=== PATIENT | male | born 1990 | race African-American/Black ===

== ENCOUNTER 2018-04-16 11:54 | Emergency (ER) | payer OTHER ==
[~2018-04-16] VITALS: Ht 185.4 cm; Wt 81.7 kg
--- NOTE | ~2018-04-16 | HC ---
[facility] [place] [address] CONSULTATION Name: QUETA KAUR Room #: DEP [id number] Admission: 04/16/18 Attend Phys: Discharge: 04/16/18 Date of : 89 Report #: [id number] THIS REPORT FOR: //name// CC: [facility] physician/PCP Shelbi Gould DATE OF SERVICE: 04/16/2018 REASON FOR CONSULTATION: Possible sore throat, questionable peritonsillar abscess. HISTORY OF PRESENT ILLNESS: I was asked to come see the patient by Dr. Gould for concerns regarding possible peritonsillar abscess. The patient was evaluated in the Emergency Room. He was alert and oriented and found in the hospital bed watching TV. He states about 5 days ago he started noticing a sore throat that he thought was caused by a smoker's cough. However, over the last 5-6 days his pain has increased. He has denied any other symptoms associated with this like abdominal pain, headaches, fever, ear pain, or runny nose. He denies any known exposure. He was seen in urgent care, had a fever of 99.5. He had a negative strep test. PAST MEDICAL HISTORY: Notable for previous peritonsillar abscess on the left side, which was I and D'd last year. He has not taken any medications for his symptoms today. His past medical history and surgical history is unremarkable aside from what is mentioned above. SOCIAL HISTORY: Notable for the use of tobacco products. REVIEW OF SYSTEMS: Negative for any other GI, , cardiovascular or respiratory symptoms. PHYSICAL EXAMINATION: VITAL SIGNS: Pulse ox 99, temperature is 37.5. GENERAL: He was alert and oriented. He did not have a hot potato voice, had a normal voice. He had no evidence of any acute distress. HEENT: Examination of the ears is unremarkable. Nares are normal. Oral cavity shows no significant trismus. Oral cavity mucosa is moist. Oropharynx reveals some edema of the right side of the soft palate with some medialization of the right tonsil compared to left. Both tonsils appear to be 2-3+ in nature, modestly cryptic. Scant exudates noted on both tonsils and fairly quickly spread. Pharyngeal wall appears unremarkable. Mild jugulodigastric adenopathy is noted bilaterally, slightly worse on the right. NECK: Otherwise supple. LABORATORY DATA: WBCs, normal white blood cell count without left shift. Strep test as noted above. Rapid strep is negative. [address] [address] CONSULTATION Name: QUETA KAUR Room #: DEP Max#: [id number] Admission: 04/16/18 Attend Phys: Discharge: 04/16/18 Date of : 89 Report #: [id number] scan was reviewed by myself. There are some changes in the attenuation in the superior portion of the oropharyngeal soft tissues. This is somewhat hazy in appearance without obvious rim enhancing and is more appreciated on the axial views, less so on the coronal and sagittal views. By palpation, this area is somewhat soft still. ASSESSMENT: History of pharyngitis, negative strep. Certainly has physical evidence and some symptoms to suggest at least peritonsillar cellulitis given the lack of trismus, otalgia, lack of obvious fluids within the CT scan. I think, at this time it still is probably just peritonsillar cellulitis. I discussed with the patient the option of going ahead and doing a needle aspiration with the knowledge that tap likely be negative versus medications with close followup if his symptoms worsen in the next 24-48 hours. The patient is agreeable at this time to outpatient management. He will be given IV antibiotics and IV steroids while in the Emergency Room to facilitate initiation of this treatment. I recommended use of Augmentin 875 b.i.d. for a 10-day course along with a tapering dose of oral prednisone for the next 5 days. Liquid narcotic pain medication could be used as well, as well as the need for excellent hydration for the patient. Thank you for this consultation. This was discussed directly with Dr. Gould as well. <ELECTRONICALLY SIGNED> By: Eugene Madrigal MD 04/22/18 [id number] Eugene Madrigal MD /nt
[2018-04-16 12:43] LABS: HEMATOCRIT 40.2 % (42.0-52.0); HEMOGLOBIN 13.7 gm/dL (14.0-18.0); MCH 31.1 pg (26.0-34.0); MCHC 34.1 g/dL (28.0-37.0); MCV 91.1 fL (80.0-100.0); PLATELET COUNT 198 thou/uL (150-400); RBC 4.41 mil/uL (4.50-6.00); RDW 12.5 % (10.5-14.5); WBC 6.7 thou/uL (4.0-11.0)
[2018-04-16 13:02] LABS: CALCIUM 9.5 mg/dL (8.5-10.1); CREATININE 0.9 mg/dL (0.7-1.3); POTASSIUM 3.9 mmol/L (3.5-5.1)
[2018-04-16 13:13] LABS: ABSOLUTE NEUTROPHILS 4.2 thou/uL (1.4-8.2)
[2018-04-16 13:14] LABS: ANISOCYTOSIS SLIGHT
[2018-04-16] MEDS ORDERED: PREDNISONE 20 M20 MG PO (16:14)
[2018-04-16] MEDS ORDERED: NORCO 5-325 TA1 EACH PO (16:14)
[2018-04-16] MEDS ORDERED: BACTRIM DS TAB1 EACH PO (16:14)
[2018-04-16 17:41] VITALS: BP 109/63
== END 2018-04-16 17:41 | disposition home or self-care (01) ==
LOC: ER 11:54
PROVIDERS: Student in an Organized Health Care Education/Training Program
DX: J36 Peritonsillar abscess (principal); F17.210 Nicotine dependence, cigarettes, uncomplicated

== ENCOUNTER 2019-05-23 09:40 | Emergency (ER) | payer OTHER ==
[~2019-05-23] VITALS: Ht 185.4 cm; Wt 81.7 kg
[~2019-05-23 09:40] MED LIST: BACTRIM DS TAB1 EACH PO; NORCO 5-325 TA1 EACH PO; PREDNISONE 20 M20 MG PO
[2019-05-23 12:58] LABS: HEMATOCRIT 40.8 % (42.0-52.0); HEMOGLOBIN 13.6 gm/dL (14.0-18.0); MCH 32.7 pg (26.0-34.0); MCHC 33.5 g/dL (28.0-37.0); MCV 97.5 fL (80.0-100.0); RBC 4.18 mil/uL (4.50-6.00); RDW 13.1 % (10.5-14.5); WBC 5.6 thou/uL (4.0-11.0)
[2019-05-23 13:05] LABS: CREATININE 1.1 mg/dL (0.7-1.3); POTASSIUM 4.1 mmol/L (3.5-5.1)
[2019-05-23] MEDS ORDERED: AUGMENTIN 875-1 EACH PO (14:13)
[2019-05-23] MEDS ORDERED: PREDNISONE 20 M20 MG PO (14:13)
[2019-05-23 14:15] VITALS: BP 108/72
== END 2019-05-23 14:03 | disposition left against medical advice (07) ==
LOC: ER 09:40
PROVIDERS: Nurse Practitioner Family
DX: J36 Peritonsillar abscess (principal); F17.210 Nicotine dependence, cigarettes, uncomplicated

== ENCOUNTER 2020-05-10 18:12 | Emergency (ER) | payer OTHER ==
[~2020-05-10] VITALS: Ht 185.4 cm; Wt 79.4 kg
[~2020-05-10 18:12] MED LIST changes: +AUGMENTIN 875-1 EACH PO
[2020-05-10 18:13] VITALS: BP 127/71
[2020-05-10] MEDS ORDERED: PREDNISONE 20 M20 MG PO (18:29)
== END 2020-05-10 18:30 | disposition home or self-care (01) ==
LOC: ER 18:12
DX: J02.0 Streptococcal pharyngitis (principal); F17.210 Nicotine dependence, cigarettes, uncomplicated

== ENCOUNTER → 2020-08-01 | Outpatient (CLI) | payer OTHER | LOC: LAB 10:57 | PROVIDERS: ATTEND Anesthesiology | DX: Z01.812 Encounter for preprocedural laboratory examination (principal); Z20.822 Contact with and (suspected) exposure to COVID-19 ==